=== PATIENT | male | born 1975 ===

== ENCOUNTER → 2018-03-06 13:50 | Outpatient (CLI) | payer OTHER ==
[2018-03-06 14:13] LABS: EOSINOPHILS 3.7 % (0-7); HEMATOCRIT 23.6 % (42.0-54.0); IMMATURE GRANULOCYTES 3.8 % (0-5); LYMPHOCYTES 32.5 % (15-50); MCH 30.2 pg (26.0-34.0); MCHC 30.1 g/dL (31.0-37.0); MCV 100.4 fL (80.0-100.0); MEAN PLATELET VOLUME 9.7 fL (7.4-10.4); MONOCYTES 13.1 % (2-11); NEUTROPHILS 43.9 % (40-80); PLATELET COUNT 238 10x3/uL (130-400); RBC 2.35 10x6/uL (4.20-6.10); RDW 21.9 % (11.5-14.5); WBC 10.1 10x3/uL (4.8-10.8)
[2018-03-06 14:17] LABS: HEMOGLOBIN 7.1 g/dL (13.5-17.5)
== END | disposition home or self-care (01) ==
LOC: D.LAB 13:50
PROVIDERS: Internal Medicine
DX: N18.6 End stage renal disease (principal); H70.893 Other mastoiditis and related conditions, bilateral; H66.90 Otitis media, unspecified, unspecified ear